=== PATIENT | female | born 2000 | race Caucasian/White ===

== ENCOUNTER 2022-03-21 13:03 | Emergency (ER) | payer BC ==
[2022-03-21 13:44] LABS: ANION GAP 8.1 meq/L (7-15)
[2022-03-21] MEDS ORDERED: [UNRECOGNIZED DRUG - OTHER] PO ONE (14:04)
[2022-03-21] MEDS ORDERED: Amoxicillin 250 MG Cap PO ONE (14:04)
== END 2022-03-21 14:45 | disposition home or self-care (01) ==
LOC: LL.ED 13:03
DX: J03.00 Acute streptococcal tonsillitis, unspecified (principal); E66.9 Obesity, unspecified; Z68.30 Body mass index [BMI] 30.0-30.9, adult
CPT/HCPCS: 36415; 80053; 84443; 85025; 86140; 86308; 87430; 99283; A9270-GY